=== PATIENT | male | born 1990 | race Caucasian/White ===

== ENCOUNTER → 2016-09-12 | Outpatient (REF) | payer OTHER | LOC: M LAB REF 16:28 | PROVIDERS: ATTEND Physician Assistant | DX: R50.9 Fever, unspecified (principal) ==

== ENCOUNTER 2016-10-21 20:39 | Emergency (ER) | payer OTHER ==
[~2016-10-21] VITALS: Ht 175.3 cm; Wt 120.2 kg
[2016-10-21 20:40] VITALS: BP 134/60
[2016-10-21] MEDS ORDERED: RISP0.5T16 PO (20:46)
[2016-10-21] MEDS ORDERED: ZOLO25TA PO (20:46)
[2016-10-21] MEDS ORDERED: TRAZ50TA4 PO (20:46)
== END 2016-10-21 22:38 | disposition left against medical advice (07) ==
LOC: M ED 22:38
DX: Z53.21 Procedure and treatment not carried out due to patient leaving prior to being seen by health care provider (principal)

== ENCOUNTER 2017-02-12 18:43 | Emergency (ER) | payer OTHER ==
[~2017-02-12] VITALS: Ht 175.3 cm; Wt 117.3 kg
[~2017-02-12 18:43] MED LIST: RISP0.5T21 PO; TRAZ50TA11 PO; ZOLO25TA PO
[2017-02-12] MEDS ORDERED: TRAZ-136 PO (18:54)
[2017-02-12] MEDS ORDERED: IBUPROFEN 800 MG TAB PO ONE (19:30)
[2017-02-12] MEDS ORDERED: METHOCARBAMOL 500 MG TAB PO ONE (19:30)
[2017-02-12] MEDS ORDERED: NORCO, ANEXSIA 5/325MG TABLET (HYDROcodone/ACETAMINOPHEN) PO ONE (19:30)
--- NOTE | 2017-02-12 20:14 | REP ---
Cervical spine age views: Vertebral body heights, interspacing alignment are normal. Facets are normally aligned. Prevertebral soft tissues are normal. There is no bony foraminal encroachment. The odontoid view is unremarkable. Impression: Negative plain film study of the cervical spine. Signed by Felix Stewart MD 02/12/2017 08:05 P
[2017-02-12] MEDS ORDERED: ROBA500T PO (20:19)
[2017-02-12] MEDS ORDERED: NORCOTAB PO (20:19)
[2017-02-12] MEDS ORDERED: IBUP80TA PO (20:19)
[2017-02-12 20:28] VITALS: BP 123/59
== END 2017-02-12 20:38 | disposition home or self-care (01) ==
LOC: M ED 18:43
DX: S16.1XXA Strain of muscle, fascia and tendon at neck level, initial encounter (principal); M54.12 Radiculopathy, cervical region; X50.0XXA Overexertion from strenuous movement or load, initial encounter; Y92.099 Unspecified place in other non-institutional residence as the place of occurrence of the external cause; Y93.89 Activity, other specified; Y99.9 Unspecified external cause status; G89.29 Other chronic pain; M54.5 Low back pain; F41.9 Anxiety disorder, unspecified; F32.9 Major depressive disorder, single episode, unspecified; F17.200 Nicotine dependence, unspecified, uncomplicated; Z79.899 Other long term (current) drug therapy

== ENCOUNTER 2017-06-03 17:50 | Emergency (ER) | payer OTHER ==
[~2017-06-03] VITALS: Ht 175.3 cm; Wt 120.5 kg
[~2017-06-03 17:50] MED LIST changes: +IBUP80TA PO; +NORCOTAB PO; +ROBA500T PO; +TRAZ-136 PO
[2017-06-03] MEDS ORDERED: ONDANSETRON 4 MG ORAL DISINTEGRATING TAB (S0181) PO ONE (20:45)
[2017-06-03] MEDS ORDERED: CLINDAMYCIN 150 MG CAP PO ONE (20:45)
[2017-06-03] MEDS ORDERED: LIDOCAINE 2% MDV 20 ML VIAL SC ONE (20:45)
[2017-06-03] MEDS ORDERED: MORPHINE 4 MG/ML 1ML SYRINGE IV ONE (20:45)
[2017-06-03] MEDS ORDERED: CLEO300C2 PO (21:40)
[2017-06-03] MEDS ORDERED: PERC5TAB12 PO (21:40)
[2017-06-03] MEDS ORDERED: OXYCODONE/APAP 5MG/325MG(BULK FOR ED) 1 TABLET PO ONE (21:45)
[2017-06-03 22:00] VITALS: BP 131/74
== END 2017-06-03 22:03 | disposition home or self-care (01) ==
LOC: M ED 17:50
DX: L02.11 Cutaneous abscess of neck (principal); M54.9 Dorsalgia, unspecified; F17.200 Nicotine dependence, unspecified, uncomplicated

== ENCOUNTER 2017-06-05 17:10 | Emergency (ER) | payer OTHER ==
[~2017-06-05] VITALS: Ht 175.3 cm; Wt 118.2 kg
[2017-06-05 17:10] VITALS: BP 125/67
[~2017-06-05 17:10] MED LIST changes: +CLEO300C2 PO; +PERC5TAB12 PO
[2017-06-05] MEDS ORDERED: LIDOCAINE 2% MDV 20 ML VIAL As Ordered ONE (17:28)
[2017-06-05] MEDS ORDERED: LIDOCAINE 2% MDV 20 ML VIAL SC ONE (17:30)
== END 2017-06-05 18:02 | disposition left against medical advice (07) ==
LOC: M ED 17:10
DX: L02.11 Cutaneous abscess of neck (principal); F41.9 Anxiety disorder, unspecified; F32.9 Major depressive disorder, single episode, unspecified; F17.200 Nicotine dependence, unspecified, uncomplicated; Z53.21 Procedure and treatment not carried out due to patient leaving prior to being seen by health care provider

== ENCOUNTER 2017-06-11 17:37 | Emergency (ER) | payer OTHER ==
[~2017-06-11] VITALS: Ht 175.3 cm; Wt 116.5 kg
[2017-06-11 19:08] VITALS: BP 144/73
== END 2017-06-11 19:14 | disposition home or self-care (01) ==
LOC: M ED 17:37
DX: L02.11 Cutaneous abscess of neck (principal); F41.9 Anxiety disorder, unspecified; F32.9 Major depressive disorder, single episode, unspecified; M54.9 Dorsalgia, unspecified; F17.210 Nicotine dependence, cigarettes, uncomplicated; Z79.2 Long term (current) use of antibiotics

== ENCOUNTER 2019-03-23 07:39 | Emergency (ER) | payer OTHER, SELFPAY ==
[~2019-03-23] VITALS: Ht 175.3 cm; Wt 116.5 kg
[2019-03-23 07:39] VITALS: BP 151/83
[~2019-03-23 07:39] MED LIST changes: +HYDR-3715 PO; -NORCOTAB PO; -TRAZ-136 PO; +TRAZ-163 PO; +TRAZ-252 PO; -TRAZ50TA11 PO
[2019-03-23] MEDS ORDERED: TETRACAINE 0.5% OPHTH SOLN 4ML OU ONE (08:00)
[2019-03-23] MEDS ORDERED: FLUORESCEIN OPHTH 1 MG STRIP OU ONE (08:00)
[2019-03-23] MEDS ORDERED: ERYTHROMYCIN OPHTH OINT OU ONE (08:15)
[2019-03-23] MEDS ORDERED: PERC5TAB12 PO (08:18)
[2019-03-23] MEDS ORDERED: IBUP80TA PO (08:18)
[2019-03-23] MEDS ORDERED: BACIOIN23 OP (08:18)
[2019-03-23] MEDS ORDERED: PERCOCET 5MG/325MG TAB PO ONE (08:30)
[2019-03-23] MEDS ORDERED: IBUPROFEN 800 MG TAB PO ONE (08:30)
== END 2019-03-23 08:50 | disposition home or self-care (01) ==
LOC: M ED 07:39
DX: H16.133 Photokeratitis, bilateral (principal); R03.0 Elevated blood-pressure reading, without diagnosis of hypertension; M54.9 Dorsalgia, unspecified

== ENCOUNTER 2019-08-20 20:00 | Emergency (ER) | payer OTHER, SELFPAY ==
[~2019-08-20] VITALS: Ht 175.3 cm; Wt 121.4 kg
[~2019-08-20 20:00] MED LIST changes: +BACIOIN23 OP; -TRAZ-163 PO; +TRAZ-257 PO
[2019-08-20] MEDS ORDERED: KETO10TAB PO (22:49)
[2019-08-20] MEDS ORDERED: KETOROLAC TROMETHAMINE 10 MG TAB PO ONE (23:00)
[2019-08-20 23:04] VITALS: BP 158/83
--- NOTE | 2019-08-21 07:04 | REP ---
Clinical: Pain with recent fall . Technique: Internal rotation, external rotation, and Y view left shoulder . Findings: No acute fracture or dislocation. The acromioclavicular and glenohumeral joints are intact. Internal rotation view demonstrates a sliver of density along the posterior aspect of the humeral head which may reflect mild chronic change. Correlation with physical examination is recommended. Sub acromial space is normal. Impression: Very small density noted on internal rotation view as described above. Correlation is recommended. Differential diagnosis would include small chronic calcification and less likely related to acute injury such as avulsion injury. Electronically Signed by Marc Chaudhry MD 08/21/2019 06:56 A
== END 2019-08-20 23:06 | disposition home or self-care (01) ==
LOC: M ED 20:00
DX: M25.512 Pain in left shoulder (principal); F41.9 Anxiety disorder, unspecified; F33.9 Major depressive disorder, recurrent, unspecified

== ENCOUNTER 2022-06-25 08:12 | Emergency (ER) | payer OTHER ==
[~2022-06-25] VITALS: Ht 175.3 cm; Wt 287.0 kg
[~2022-06-25 08:12] MED LIST changes: +KETO10TAB PO
[2022-06-25 08:13] VITALS: BP 147/82
[2022-06-25] MEDS ORDERED: IBUPROFEN 600MG TAB PO ONE (09:45)
[2022-06-25] MEDS ORDERED: ACETAMINOPHEN 500 MG TAB PO ONE (09:45)
[2022-06-25] MEDS ORDERED: IBUP-1022 PO (10:34)
[2022-06-25] MEDS ORDERED: ANEC4CRE3 TOP (10:34)
== END 2022-06-25 11:01 | disposition home or self-care (01) ==
LOC: M ED 08:12
DX: S93.401A Sprain of unspecified ligament of right ankle, initial encounter (principal); W19.XXXA Unspecified fall, initial encounter; Y99.0 Civilian activity done for income or pay; F17.200 Nicotine dependence, unspecified, uncomplicated

== ENCOUNTER → 2024-10-06 | Outpatient (CLI) | payer OTHER ==
[~2024-10-06] MED LIST changes: +ANEC4CRE3 TOP; +IBUP-1022 PO
== END ==
LOC: M EKG 11:45
PROVIDERS: ATTEND Nurse Practitioner Psychiatric/Mental Health
DX: F90.8 Attention-deficit hyperactivity disorder, other type (principal)

== ENCOUNTER 2025-04-28 19:35 | Emergency (ER) | payer OTHER ==
[~2025-04-28 19:35] MED LIST changes: -IBUP-1022 PO; +IBUP600T42 PO
[2025-04-28 20:29] LABS: PLATELET COUNT, AUTOMATED 281 10^3/uL (150-450)
[2025-04-28 20:43] LABS: BARBITURATES URINE NEGATIVE (NEGATIVE); COCAINE METABOLITE URINE NEGATIVE (NEGATIVE)
[2025-04-28 20:44] LABS: BENZODIAZEPINES URINE NEGATIVE (NEGATIVE); CANNABINOIDS URINE NEGATIVE (NEGATIVE); METHADONE URINE NEGATIVE (NEGATIVE); OPIATES URINE NEGATIVE (NEGATIVE); PHENCYCLIDINE URINE NEGATIVE (NEGATIVE)
[2025-04-28 20:46] LABS: ETHYL ALCOHOL (ETHANOL) 0.006 % (0.000-0.010)
[2025-04-28 20:47] LABS: SALICYLATE LEVEL < 3.0 MG/DL (<30)
[2025-04-28 20:48] LABS: ALT/SGPT 26 U/L (7.0-40); AST/SGOT 23 U/L (<34); CALCIUM LEVEL 9.1 MG/DL (8.5-10.1); CARBON DIOXIDE LEVEL 24 MMOL/L (20-31); CHLORIDE LEVEL 105 MMOL/L (98-107); CREATININE FOR GFR 0.82 MG/DL (0.70-1.30); GLOMERULAR FILTRATION RATE > 90.0 (>60); POTASSIUM SERUM 3.8 MMOL/L (3.5-5.1); SODIUM LEVEL 139 MMOL/L (136-145)
[2025-04-28 20:50] LABS: AMPHETAMINES LEVEL URINE POSITIVE (NEGATIVE)
[2025-04-28 22:00] VITALS: BP 163/72; TEMP 97.1; O2SAT 98
== END 2025-04-28 22:08 | disposition home or self-care (01) ==
LOC: M ED 19:35
DX: F43.0 Acute stress reaction (principal); F32.A Depression, unspecified; M54.50 Low back pain, unspecified; F17.200 Nicotine dependence, unspecified, uncomplicated; Z79.1 Long term (current) use of non-steroidal anti-inflammatories (NSAID); Z79.899 Other long term (current) drug therapy